=== PATIENT | female | born 1995 ===

== ENCOUNTER 2018-11-26 12:17 | Outpatient (CLI) | payer OTHER | END 2018-11-26 12:18 | disposition home or self-care (01) | LOC: C.LAB 12:17 ==

== ENCOUNTER 2019-02-01 12:23 | Outpatient (CLI) | payer OTHER | END 2019-02-01 12:24 | disposition home or self-care (01) | LOC: C.LAB 12:23 ==

== ENCOUNTER 2019-02-15 17:45 | Inpatient (IN) | payer SELFPAY ==
[2019-02-15 18:11] VITALS: BMI 33.3
[2019-02-15] MEDS ORDERED: Lactated Ringer's 1,000 ML IV ONE (18:19)
[2019-02-15] MEDS ORDERED: Lactated Ringer's 1,000 ML IV SCH (18:30)
[2019-02-15 18:34] LABS: BASO % 0.4 % (0.0-2.0); EOS # 0.1 K/uL (0.0-0.7); EOS % 0.6 % (0.0-4.0); HEMOGLOBIN 12.5 g/dL (11.0-16.0); LYMPH # 3.1 K/uL (1.0-4.3); LYMPH % 27.2 % (20.0-40.0); MEAN CELL VOLUME 84.4 fL (81.0-99.0); MEAN CORPUSCULAR HEMOGLOBIN 28.1 pg (27.0-31.0); MEAN CORPUSCULAR HGB CONC 33.2 g/dL (33.0-37.0); MEAN PLATELET VOLUME 9.4 fL (7.2-11.7); MONO # 0.8 K/uL (0.0-0.8); MONO % 6.8 % (0.0-10.0); NEUT # 7.4 K/uL (1.8-7.0); RBC 4.46 Mil/uL (3.80-5.20); RED CELL DISTRIBUTION WIDTH 13.4 % (11.5-14.5); WHITE BLOOD COUNT 11.3 K/uL (4.8-10.8)
[2019-02-15 18:57] LABS: SQUAMOUS EPITHIAL 3 /hpf (0-5); URINE BILIRUBIN NEGATIVE (NEGATIVE); URINE BLOOD NEGATIVE (NEGATIVE); URINE CLARITY Clear (Clear); URINE COLOR Yellow (YELLOW); URINE GLUCOSE (UA) NORMAL (Normal); URINE LEUKOCYTE ESTERASE NEG Leu/uL (Negative); URINE PROTEIN NEGATIVE (NEGATIVE); URINE UROBILINOGEN NORMAL mg/dL (0.2-1.0)
[2019-02-15 19:01] LABS: ALB/GLOB RATIO 1.1 (1.0-2.1); ALBUMIN 3.9 g/dL (3.5-5.0); AST/SGOT 23 U/L (14-36); BLOOD UREA NITROGEN 10 mg/dL (7-17); GFR NON-AFRICAN AMERICAN > 60
[2019-02-15 19:03] LABS: ALT/SGPT < 6 U/L (9-52)
--- NOTE | 2019-02-15 19:27 | OBHP ---
Datetime: 02/15/2019 18:17 IP Adm Impression: Term, intrauterine ; No Active Labor; Intact Membranes IP Admit Plan: Admit to unit Admit Comment, IP Provider: Lisa is a private patient of Dr. Hernandez 23 y.o. , LMP 05/20/18, LONNIE 02/25/19, EGA 39w 4d referred for IOL by priv OB secondary to low A FI, today in the office LISA = 8 cm. (+) AFM; denies LOF, VB. Passed mucous plug at 0830 hours. (+) stronger Ctx thereafter; onset of Ctx last night. Pain scale now 7/10. care: Dr. 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 Denies H/O STIs, abnormal Pap, myoma. PMH: denies PSH: denies NKDA Meds: PNV - QD; last took 02/14/19. Vit D - weekly Soc Hx: denies tobacco, illicit drug or EtOH use. x 2 years. Homemaker Fam Hx: both alive, both 49 y.o. Mother - pre-DM; Father - thyroid. No known fam h/o cancer P.E.: as abov.e Mildly obese in NAD. Awake, alert, oriented to time, person and place. Pleasant an d cooperative. Assessment: 23 y.o. P0, 38w 5d, low LISA for IOL. GBS (-). Category 1 traicng. Patient is clinciall y stable. Cervidil placed in posterior vaginalvault without incident at 1921 hours (as per Dr. Hernandez) Plan: 1) Admit 2) NPO 3) IVFs 4) Continuous EFM 5) Admission labs 6) Anticipatae vaginal delivery - Dr. Hernandez is aware Pelvic Type - PN: Adequate Extremities - PN: Normal Abdomen - PN: Normal Back - PN: Normal Breast - PN: Not Done Lungs - PN: Normal Heart - PN: Normal Thyroid - PN: Not Done Neurologic - PN: Normal HEENT - PN: Normal General - PN: Normal Weight - Estimated: 6 1/2lb Presentation-Admit: Vertex FHR - Baseline A Provider: 125 Contraction Comments Provider: irritability Comments, ACOG Physical Exam: Abdomen: Gravid. Soft. Non tender in all quadrants. Fundal height 36cm All other systems reviewed and are negative Gestation - Est Wks by US: 38.4 IP Hx Assessment: The History has been Reviewed EGA AdmitDate IP: 38.4 Vital Signs Provider: Reviewed; Within Normal Limits IP Indication for Induction: Other IP Indication for Induction Oth: Low LISA IP Chief Complaint: Other NICHD Variability Prov Fetus A: Moderate 6-25bpm NICHD Accel Fetus A IP Provider: 15X15 FHR Category Provider Fetus A: Category I NICHD Decel Fetus A IP Provider: None Dilatation, Provider: 2 Effacement, Provider: 50 Station, Provider: -2 Genitourinary Exam: Normal DTRs - PN: Not Done
[2019-02-15] MEDS ORDERED: Nalbuphine 20 mg/ml Inj (1 ml) IVP PRN ×2 (19:32→20:15)
--- NOTE | 2019-02-15 19:32 | OBADHP ---
Datetime: 02/15/2019 18:17 EGA AdmitDate IP: 38.4 IP Admit Plan: Admit to unit; Initiate labor induction protocol
[2019-02-16] MEDS ORDERED: Nalbuphine HCL 10 mg/ml Ampule ONE (01:12)
[2019-02-16] MEDS ORDERED: Fentanyl/Bupivacaine HCl 250 ML EPI ONE (04:39)
--- NOTE | 2019-02-16 07:01 | OBPN ---
Datetime: 02/16/2019 06:58 IP Progress Impression: Normal progression of labor IP Procedures: Sterile Vag Exam Contraction Comments Provider: q1-4 FHR - Baseline A Provider: 130 IP Progress Note Comment: pt was examined at bed side ve 9/100/0 will anticipate pushing Vital Signs Provider: Reviewed; Within Normal Limits NICHD Accel Fetus A IP Provider: 15X15 FHR Category Provider Fetus A: Category I NICHD Variability Prov Fetus A: Moderate 6-25bpm Dilatation, Provider: 9 Effacement, Provider: 100 Station, Provider: 0 Datetime: 02/15/2019 18:17 Gestation - Est Wks by US: 38.4 Weight - Estimated: 6 1/2lb Presentation-Admit: Vertex NICHD Decel Fetus A IP Provider: None
[2019-02-16] MEDS ORDERED: Lidocaine 2% MPF (5 ml) Inj ONE (07:18)
[2019-02-16] MEDS ORDERED: Oxycodone/Acetaminophen 5/325 mg Tab PO PRN (08:22)
--- NOTE | 2019-02-16 08:40 | OBDS ---
DELIVERY PERSONNEL Delivery Doctor: Jordan Hernandez MD Gas Engine Operator Compressors: Alexandre Goldsmith RN Anesthesiologist: Dr. Vieyra MATERNAL INFORMATION Delivery Anesthesia: Epidural Maternal Complications: None Other Maternal Complications: H/O OLIGO H/O HYPOTHROIDISM VITAMIN D DEFICENCY Provider Comments: Dr Hernandez private baby de;iverd in peter end clean 9/9 plavcente spontneously no com LABOR SUMMARY EDC: 02/25/2019 00:00 No. Babies in Womb: 0 Attempted: No Labor Anesthesia: Epidural LABOR INFORMATION Reason for Induction: Oligohydramnios Onset of Labor: 02/15/2019 23:53 Cervical Ripening Agents: Cervidil Oxytocin: N/A Group B Beta Strep: Negative Steroids Given: None Reason Steroids Not Administered: Not Applicable MEMBRANES Membranes Rupture Method: Spontaneous Rupture of Membranes: 02/15/2019 23:53 Amniotic Fluid Color: Clear Amniotic Fluid Amount: Scant Amniotic Fluid Odor: Normal VAGINAL DELIVERY Episiotomy: Right Mediolateral Laceration Extension: N/A Laceration Type: None Laceration Repair Note: repaired with 3 ch BABY A INFORMATION Born in Route : No : N/A PRESENTATION/POSITION BABY A Presentation: Cephalic Cephalic Presentation: Vertex Vertex Position: Left Occipital Anterior Breech Presentation: N/A PLACENTA INFORMATION BABY A Placenta Method of Delivery: Spontaneous Placenta Status: Delivered INFANT INFORMATION BABY A Gestational Age at Delivery: 38.5 IDENTIFICATION/MEDS BABY A ID Band Number: [id number] Sensor Number: [id number] CORD INFORMATION BABY A Nuchal Cord : N/A
[2019-02-16] MEDS: Benzocaine/Menthol 20%-0.5% Topical Spray (60 ml) TOP PRN (11:30)
[2019-02-16] MEDS: Multiple Vitamins Tab PO SCH (11:32)
--- NOTE | 2019-02-17 06:57 | OBPPN ---
Datetime: 02/17/2019 06:48 PP Pain Prov: Within normal limits PP Nausea Prov: Denies PP Flatus Prov: Yes PP Abdomen/Uterus Prov: Normal PP Lochia Prov: Normal PP Extremities Prov: Normal PP Impression Prov: Normal progression PP Plan Prov: Continue present management PP Progress Note Prov: pt was seen at bed side, pain under control,no n/v, toleratig deit, voiding, min lochaia, fka + ppd#1 cbc eg deit cont pp care cont painmanag
[2019-02-17] MEDS ORDERED: Tdap Vaccine 0.5 ml Vial (10-64 yrs) IM ONE (08:00)
[2019-02-17 08:38] LABS: BASO # 0.1 K/uL (0.0-0.2); BASO % 0.5 % (0.0-2.0); EOS # 0.1 K/uL (0.0-0.7); EOS % 0.5 % (0.0-4.0); HEMOGLOBIN 10.9 g/dL (11.0-16.0); LYMPH # 3.4 K/uL (1.0-4.3); LYMPH % 20.9 % (20.0-40.0); MEAN CELL VOLUME 84.9 fL (81.0-99.0); MEAN CORPUSCULAR HEMOGLOBIN 28.6 pg (27.0-31.0); MEAN CORPUSCULAR HGB CONC 33.7 g/dL (33.0-37.0); MEAN PLATELET VOLUME 9.2 fL (7.2-11.7); MONO # 0.8 K/uL (0.0-0.8); MONO % 5.1 % (0.0-10.0); NEUT # 11.9 K/uL (1.8-7.0); NRBC % 0.1 % (0.0-2.0); RBC 3.81 Mil/uL (3.80-5.20); RED CELL DISTRIBUTION WIDTH 13.8 % (11.5-14.5); WHITE BLOOD COUNT 16.3 K/uL (4.8-10.8)
[2019-02-17] MEDS: Multiple Vitamins Tab PO SCH (09:58)
[2019-02-18 07:58] VITALS: BP 116/73; PULSE 97; RESP 18; TEMP 97.6; O2SAT 99
--- NOTE | 2019-02-18 09:29 | OBDCSUM ---
Datetime: 02/18/2019 09:27 Discharged to, Provider: Home Follow up at, Provider: 3 Discharge Diagnosis, Provider: Term Delivered Follow up in weeks, Provider: dr zabala Disch Activity Restrictions: Minimize walking; Minimize stair-climbing; No sexual activity; Nothing in vagina - [place], tampons, douche
--- NOTE | 2019-02-18 09:29 | OBPPN ---
Datetime: 02/18/2019 09:27 PP Pain Prov: Within normal limits PP Nausea Prov: Denies PP Abdomen/Uterus Prov: Normal PP Lochia Prov: Normal PP Extremities Prov: Normal PP Impression Prov: Normal progression PP Plan Prov: Discharge PP Progress Note Prov: pt was seen at bed side, pain under control,no n/v, toleratig deit, voiding, min lochaia, fka + ppd#2 dc home no sex motrinprn f/u Vital Signs Provider PP: Reviewed; Within Normal Limits
[2019-02-18] MEDS: Multiple Vitamins Tab PO SCH (09:58)
[2019-02-18] MEDS: Benzocaine/Menthol 20%-0.5% Topical Spray (60 ml) TOP PRN (10:05)
== END 2019-02-18 11:30 | disposition home or self-care (01) | DRG 807 ==
LOC: C.EROB 17:45 → C.4D 18:17 → C.4M 02-16 09:55
PROVIDERS: ADMIT Obstetrics & Gynecology; ATTEND Obstetrics & Gynecology
PROC: 0W8NXZZ Division of Female Perineum, External Approach (ICD-10-PCS; principal; 2019-02-15)
PROC: 10E0XZZ Delivery of Products of Conception, External Approach (ICD-10-PCS; 2019-02-15)
DX: O80 Encounter for full-term uncomplicated delivery (principal); Z37.0 Single live birth; Z3A.38 38 weeks gestation of pregnancy